=== PATIENT | female | born 1990 | race Caucasian/White ===

== ENCOUNTER 2018-12-10 09:02 | Inpatient (IN) ==
[2018-12-10] MEDS ORDERED: LACTATED RINGERS 250 ML IV ONE (09:13)
[2018-12-10] MEDS ORDERED: LACTATED RINGERS 500 ML IV PRN (09:13)
[2018-12-10] MEDS ORDERED: ONDANSETRON 4 MG/2 ML VIAL IV PRN ×2 (09:13→10:49)
[2018-12-10] MEDS ORDERED: OXYTOCIN/LR 20 UNIT/1,000 ML BAG IV SCH (09:30)
[2018-12-10 09:35] LABS: Basophils % 0.3 % (0.0-0.8); Eosinophils % 0.3 % (0.00-10.9); Hematocrit 30.6 VOL% (35.7-47.0); Hemoglobin 9.6 GM/DL (12.0-16.0); Immature Granulocytes % 0.7 %; Lymphocytes # 2.6 10*3/uL (1.4-4.0); Lymphocytes % 19.6 % (21.3-54.2); Mean Corpuscular HGB Conc 31.4 GM/DL (32-36); Mean Corpuscular Volume 92.4 FL (87-102); Mean Platelet Volume 11.4 FL (9.6-12.0); Monocytes % 4.4 % (1.7-12.7); Neutrophils % 74.7 % (38.7-73.9); Platelet Count 283 T/CUMM (130-400); Red Blood Count 3.31 MC/CUMM (3.8-5.5); Red Cell Distribution Width 14.8 % (9.3-17.3); White Blood Count 13.5 T/CUMM (4-12)
[2018-12-10 09:44] LABS: INR 0.9; PT Patient Result 9.4 SECS; Partial Thromboplastin Time 21.6 SECS (0-40)
[2018-12-10 09:59] LABS: Alanine Aminotransferase 13 U/L (13-56); Albumin 1.8 G/DL (3.4-5.0); Alkaline Phosphatase 97 U/L (45-117); Aspartate Amino Transferase 18 U/L (0-37); Bilirubin,Direct < 0.100 MG/DL (0.0-0.20); Bilirubin,Total < 0.39 MG/DL (0.2-1.0); Blood Urea Nitrogen 3 MG/DL (7-18); Calcium 7.7 MG/DL (8.5-10.1); Glucose 87 MG/DL (74-106); Osmolality,Calculated 272.5 MOS/KG (273-304); Total Protein 5.5 G/DL (6.4-8.3)
[2018-12-10 10:23] LABS: Apearance,Urine CLEAR (Clear); Bilirubin,Urine Negative (Negative); Blood, Urine Negative (Negative); Glucose,Urine (UA) Negative (Negative); Ketones,Urine Negative (Negative); Mucus,Urine Few /LPF (Occasional); Nitrite,Urine Negative (Negative); Protein,Urine Negative; RBC,Urine 1 /HPF (0-4); Squamous Epithelial Cell,Urine Occasional /HPF (0-10); Urine Color Yellow (Yellow); Urine Specific Gravity 1.008 (1.001-1.035); Urine Urobilinogen < 2.0 EU/DL (0.2-1.0)
[2018-12-10] MEDS ORDERED: OXYTOCIN/LR 20 UNIT/1,000 ML BAG IV ONE ×2 (10:38→10:49)
[2018-12-10 10:41] LABS: Barbiturates Screen,Urine Negative (Negative); Benzodiazepines Screen,Urine Negative (Negative); Cannabinoid Screen,Urine Negative (Negative); Opiate Screen,Urine Negative (Negative); Phencyclidine Screen,Urine Negative (Negative)
[2018-12-10] MEDS ORDERED: KETOROLAC 60 MG/2 ML VIAL IM ONE (10:41)
[2018-12-10] MEDS ORDERED: ACETAMINOPHEN 325 MG TABLET PO PRN (10:49)
[2018-12-10] MEDS ORDERED: RHO(D) IMMUNE GLOBULIN 300 MCG SYRINGE IM ONE (10:49)
[2018-12-10] MEDS: HYDROmorphone 2 MG/1 ML VIAL IV SCH ×2 (10:52→13:50)
[2018-12-10] MEDS ORDERED: LACTATED RINGERS 1,000 ML IV SCH (11:00)
[2018-12-10] MEDS ORDERED: ceFAZolin 1,000 MG in SYRINGE 1 EACH IV SCH (11:00)
[2018-12-10] MEDS ORDERED: MIDAZOLAM 2 MG/2 ML VIAL ONE (11:04)
[2018-12-10] MEDS ORDERED: PROPOFOL 200 MG/20 ML VIAL IV ONE (11:04)
[2018-12-10] MEDS ORDERED: fentaNYL 100 MCG/2 ML VIAL ONE ×2 (11:04→11:05)
[2018-12-10] MEDS ORDERED: LACTATED RINGERS 1,000 ML IV ONE (11:05)
[2018-12-10] MEDS ORDERED: DEXAMETHASONE 4 MG/1 ML VIAL ONE (11:05)
[2018-12-10] MEDS ORDERED: SUCCINYLCHOLINE 200 MG/10 ML VIAL ONE (11:05)
[2018-12-10] MEDS ORDERED: ONDANSETRON 4 MG/2 ML VIAL ONE (11:05)
[2018-12-10 11:34] LABS: HIV Antigen/Antibody Result Nonreactive (Nonreactive); Hepatitis B Surface Ag Quant < 0.10 Index; Hepatitis B Surface Ag Result Negative (Negative); Rubella Antibody IgG 44.3 IU/ML
[2018-12-10] MEDS ORDERED: HYDROmorphone 2 MG/1 ML VIAL IV ONE (11:59)
[2018-12-10] MEDS ORDERED: CLINDAMYCIN INJ 900 MG in PREMIX 1 EACH IV ONE (12:38)
[2018-12-10] MEDS: HYDROmorphone 2 MG/1 ML VIAL IV PRN ×3 (16:13→23:08)
[2018-12-10] MEDS: KETOROLAC 30 MG/1 ML VIAL IV SCH ×2 (17:08→23:03)
[2018-12-10] MEDS: LACTATED RINGERS 1,000 ML IV SCH (18:40)
[2018-12-10 19:44] LABS: Basophils % 0.1 % (0.0-0.8); Hematocrit 23.5 VOL% (35.7-47.0); Hemoglobin 7.2 GM/DL (12.0-16.0); Immature Granulocytes % 0.7 %; Lymphocytes # 1.4 10*3/uL (1.4-4.0); Lymphocytes % 9.1 % (21.3-54.2); Mean Corpuscular HGB Conc 30.6 GM/DL (32-36); Mean Corpuscular Volume 92.2 FL (87-102); Mean Platelet Volume 11.5 FL (9.6-12.0); Monocytes % 4.4 % (1.7-12.7); Neutrophils % 85.7 % (38.7-73.9); Platelet Count 272 T/CUMM (130-400); Red Blood Count 2.55 MC/CUMM (3.8-5.5); Red Cell Distribution Width 14.6 % (9.3-17.3); White Blood Count 15.3 T/CUMM (4-12)
[2018-12-10] MEDS: CLINDAMYCIN INJ 900 MG in PREMIX 1 EACH IV SCH (20:19)
[2018-12-10] MEDS: DOCUSATE SODIUM 100 MG CAPSULE PO SCH (21:24)
[2018-12-11] MEDS: CLINDAMYCIN INJ 900 MG in PREMIX 1 EACH IV SCH (04:03)
[2018-12-11] MEDS: KETOROLAC 30 MG/1 ML VIAL IV SCH (04:10)
[2018-12-11 04:55] LABS: Basophils % 0.2 % (0.0-0.8); Eosinophils % 0.2 % (0.00-10.9); Hemoglobin 6.7 GM/DL (12.0-16.0); Immature Granulocytes % 0.5 %; Immature Granulocytes Absolute 0.07 #; Lymphocytes # 2.9 10*3/uL (1.4-4.0); Lymphocytes % 19.6 % (21.3-54.2); Mean Corpuscular HGB Conc 31.9 GM/DL (32-36); Mean Corpuscular Volume 91.7 FL (87-102); Mean Platelet Volume 11.7 FL (9.6-12.0); Monocytes % 5.8 % (1.7-12.7); Neutrophils % 73.7 % (38.7-73.9); Platelet Count 277 T/CUMM (130-400); Red Blood Count 2.29 MC/CUMM (3.8-5.5); Red Cell Distribution Width 14.8 % (9.3-17.3)
[2018-12-11] MEDS: LACTATED RINGERS 1,000 ML IV SCH (05:10)
[2018-12-11] MEDS: SIMETHICONE CHEW 80 MG TABLET PO PRN (09:11)
[2018-12-11] MEDS: DOCUSATE SODIUM 100 MG CAPSULE PO SCH ×2 (09:11→22:08)
[2018-12-11] MEDS: MULTIVITAMIN (PRENATAL) TABLET PO SCH (09:11)
[2018-12-11] MEDS: MAGNESIUM HYDROXIDE SUSP 30 ML UDCUP PO PRN ×2 (09:11→22:08)
[2018-12-11] MEDS: FERROUS SULFATE 325 MG TABLET PO SCH ×2 (09:13→22:08)
[2018-12-11] MEDS ORDERED: SODIUM CHLORIDE 0.9% 1,000 ML IV PRN (09:43)
[2018-12-11] MEDS: IBUPROFEN 800 MG TABLET PO PRN ×2 (13:58→22:08)
[2018-12-12 06:08] LABS: Basophils # 0.1 10*3/uL (0.0-0.2); Basophils % 0.4 % (0.0-0.8); Eosinophils # 0.2 10*3/uL (0.0-0.87); Eosinophils % 1.6 % (0.00-10.9); Hematocrit 29.9 VOL% (35.7-47.0); Immature Granulocytes % 0.7 %; Lymphocytes # 2.5 10*3/uL (1.4-4.0); Lymphocytes % 18.1 % (21.3-54.2); Mean Corpuscular HGB Conc 32.4 GM/DL (32-36); Mean Corpuscular Volume 87.4 FL (87-102); Mean Platelet Volume 10.9 FL (9.6-12.0); Monocytes % 4.4 % (1.7-12.7); Neutrophils % 74.8 % (38.7-73.9); Platelet Count 283 T/CUMM (130-400); Red Cell Distribution Width 15.3 % (9.3-17.3); White Blood Count 13.9 T/CUMM (4-12)
[2018-12-12 06:18] LABS: Red Blood Count 3.42 MC/CUMM (3.8-5.5)
[2018-12-12 06:19] LABS: Hemoglobin 9.7 GM/DL (12.0-16.0)
[2018-12-12 07:12] VITALS: BP 135/78
[2018-12-12] MEDS: DOCUSATE SODIUM 100 MG CAPSULE PO SCH (09:23)
[2018-12-12] MEDS: FERROUS SULFATE 325 MG TABLET PO SCH (09:23)
[2018-12-12] MEDS: MAGNESIUM HYDROXIDE SUSP 30 ML UDCUP PO PRN (09:23)
[2018-12-12] MEDS: MULTIVITAMIN (PRENATAL) TABLET PO SCH (09:23)
[2018-12-12] MEDS: IBUPROFEN 800 MG TABLET PO PRN (09:24)
[2018-12-12] MEDS: SIMETHICONE CHEW 80 MG TABLET PO PRN (09:24)
== END 2018-12-12 12:55 | disposition home or self-care (01) | DRG 786 ==
LOC: N.LDOUT 09:02 → N.LD 09:06 → N.OB 12:56
PROVIDERS: ADMIT Obstetrics & Gynecology; ATTEND Obstetrics & Gynecology
PROC: LDCSECT (ICD-10-PCS; 2018-12-10 09:15)